=== PATIENT | female | born 1955 | race Caucasian/White ===

== ENCOUNTER → 2018-04-18 | Outpatient (CLI) | payer MEDICARE ==
--- NOTE | 2018-04-18 20:38 | PN ---
PROGRESS NOTE This is a 60-year-old female patient with obstructive sleep apnea coming in for followup. She is doing extremely well. She is using the [employer] nose mask. She has lost weight. She used to weight 344. Currently she is down to 328. She has been averaging around 7.9 hours of CPAP use per night. Her CPAP use for more than 4 hours is 27/30. AHI while on treatment is down to 1. She is on a CPAP pressure of 15 cm of water. Leak factor is 11 L/minute. She continues to benefit from the treatment. No major medical problems or comorbidities over the past one year. She is waking up refreshed and alert and she has no other complaints otherwise. REVIEW OF SYSTEMS: Twelve-point review of systems was done. Positive findings are all mentioned above in the history of present illness. PHYSICAL EXAMINATION: CURRENT VITALS: BP is 146/65, pulse 88, respirations 16, temperature 98.5, saturation 95% on room air. BMI 51.3. Weight is 328. [place] score is 4. GENERAL APPEARANCE: Calm comfortable. Head is atraumatic, normocephalic. NECK: Supple. There is no JVD. No goiter or neck masses. LUNGS: Diminished breath sounds bilaterally. HEART: Heart sounds are regular rate and rhythm. Normal S1, S2. No S3, S4. No murmurs. ABDOMEN: Soft, nontender. No organomegaly. EXTREMITIES: No edema. No cyanosis or clubbing. IMPRESSION: 1. Obstructive sleep apnea, currently on CPAP pressure of 15. Continues to be treated successfully without any issues. 2. Hypersomnia, recovered. 3. Obesity with interval weight loss. BMI 51.3. Weight is down to 328. 4. Diabetes. 5. Hypertension. 6. History of depression. PLAN: 1. Keep the pressure at 15. 2. Offer AirFit N20 nose mask. 3. Encourage further weight loss. 4. See me back in a year's time. MMODL / IJN: [id number] /
== END | disposition home or self-care (01) ==
LOC: SLEEP 15:47
PROVIDERS: ATTEND Internal Medicine Critical Care Medicine
DX: G47.33 Obstructive sleep apnea (adult) (pediatric) (principal); E66.9 Obesity, unspecified; E11.9 Type 2 diabetes mellitus without complications; I10 Essential (primary) hypertension; F32.9 Major depressive disorder, single episode, unspecified; Z68.43 Body mass index [BMI] 50.0-59.9, adult; Z99.89 Dependence on other enabling machines and devices

== ENCOUNTER → 2019-04-03 | Outpatient (CLI) | payer MEDICARE ==
--- NOTE | 2019-04-03 14:11 | PN ---
PROGRESS NOTE Brittaney is a 63-year-old female patient with known history of obstructive sleep apnea. The patient is coming in for an annual check. The patient has is still using the nasal mask which she was given originally which is an EasyLife nose mask. She has done extremely well. However it has got to the point with the manufacture is not producing the same mask and we are looking for alternatives. She is losing weight. She has lost around 8 pounds since her last evaluation around a year ago. She remains extremely compliant with her CPAP which is set at a pressure of 15 cm of water. Her CPAP use on averages is around 9 hours and her CPAP use for more than 7 hours is 29/30. Leak is 19 L/minute and AHI is down to 2. She has no specific complaints. She is seeking for alternative masks. No other new onset of medical problems and comorbidities, no angina, no palpitation, no CVA, no history of any congestive heart failure. Medication was reviewed. MEDICATION LIST: Includes Lasix 20 mg p.o. daily, hydrochlorothiazide 50 mg p.o. q. day, benazepril to 20 mg p.o. q. day, Cymbalta 30 q. day, flaxseed oil, magnesium, baby aspirin, Ginseng, Cymbalta 30 mg p.o. q. day, Lantus insulin 90 units in the morning, 26 in the evening, and sliding scale coverage. REVIEW OF SYSTEMS: A 14-point review of system was done. Positive findings are mentioned in history of present illness. Of significance, the positive weight loss. No major hypersomnia or sleepiness. At this point in time, the patient's [place] score is down to 5. PHYSICAL EXAMINATION: BP is 131/67, pulse 80, respirations 16, temperature 98 degrees, saturation 92% on room air. Height is 5, 6, weight is 220. GENERAL APPEARANCE: Calm, comfortable. HEAD: Atraumatic, normocephalic. NECK: Supple. No JVD. No goiter or neck mass. Mallampati class IV. LUNGS: Clear to auscultation. HEART: Sounds regular rate and rhythm. Normal S1, S2. No S3, S4. No murmurs. ABDOMEN: Soft, nontender. No organomegaly. EXTREMITIES: No edema. No cyanosis or clubbing. IMPRESSION: 1. Obstructive sleep apnea, currently on CPAP pressure of 15 cm of water. Treatment continues to be extremely successful. 2. Obesity with interval weight loss. Patient lost weight is in the order of 8 pounds and current BMI is 50.8. 3. Hypersomnia, improved. 4. Diabetes. 5. Hypertension. 6. Depression. PLAN: 1. The patient was fitted to an Air Fit N20 medium-sized full nose mask. 2. Encourage weight loss. 3. Continue same CPAP pressure. 4. See me back in a year's time in followup. MMODL / IJN: [id number] /
== END | disposition home or self-care (01) ==

== ENCOUNTER → 2020-04-01 | Outpatient (CLI) | payer MEDICARE ==
--- NOTE | 2020-04-01 16:06 | PN ---
PROGRESS NOTE This patient is seeing me for an annual check regarding obstructive sleep apnea. She has history of MIKEY and she [facility] The patient is utilizing her CPAP machine, which is set at a pressure of 15 cm of water. She also uses an [employer] nose mask. Since her last evaluation, the patient has been extremely successful in terms of her treatment and the patient has been well treated. I checked compliance data from her machine and over the past 30 days the patient has been averaging around 9.1 hours of CPAP use per night. His CPAP use for more than 4 hours is approaching 100%. Her leak is around 31 L/minutes. Her AHI is down to 1.8. 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 Since then, she has been on anticoagulation and she is on Eliquis for now and she has been on Eliquis for the past 7 months. It seems that her DVT and pulmonary embolism were unprovoked. She is morbidly obese and today she is weighing around 217 pounds, which is equivalent to her previous body weight. No major hypersomnia or sleepiness during the day. She is using an AirFit N20 nose mask. Her shortness of breath has improved. REVIEW OF SYSTEMS: A 14-point review of system was done, positive findings are mentioned in history of present illness. Positive for internal development of DVT and pulmonary embolism. Her BP is 188/81, pulse 84, respirations 16, temperature 98.4, saturation 96% on room air. Height is 5, 7, weight is 217. GENERAL APPEARANCE: Calm, comfortable. HEAD: Atraumatic, normocephalic. NECK: Supple. No JVD. No goiter or neck masses, Mallampati class IV. LUNGS: Clear to auscultation. HEART: Heart sounds are regular rate and rhythm, normal S1, S2. No S3, S4. No murmurs. ABDOMEN: Soft, nontender. No organomegaly. EXTREMITIES: Trace edema. No cyanosis or clubbing. No calf pain or tenderness. IMPRESSION: 1. MIKEY. The patient has been treated with CPAP pressure of 15 cm of water. Her treatment has been essentially successful. Compliance data was checked. 2. Morbid obesity with a BMI of 50. 3. No history of DVT and pulmonary embolism. The patient is on long-term anticoagulation with Eliquis. 4. Hypersomnia, improved. 5. Diabetes. 6. Hypertension. 7. Depression. PLAN: 1. Continue anticoagulation with Eliquis. 2. The patient is to see me in the office in regard to her DVT and pulmonary embolism, for further advice and I advised her to come in 5 months' time after completing a year course of anticoagulation for unprovoked pulmonary embolism. 3. Encourage weight loss. Continue APAP therapy. Keep the easy life nasal mask. 4. Will continue to follow. MMODL / IJN: [id number] /
== END | disposition home or self-care (01) ==
LOC: SLEEP 13:01
PROVIDERS: ATTEND Internal Medicine Critical Care Medicine
DX: G47.33 Obstructive sleep apnea (adult) (pediatric) (principal); G47.10 Hypersomnia, unspecified; E66.01 Morbid (severe) obesity due to excess calories; E11.9 Type 2 diabetes mellitus without complications; I10 Essential (primary) hypertension; F32.9 Major depressive disorder, single episode, unspecified; Z68.43 Body mass index [BMI] 50.0-59.9, adult; Z99.89 Dependence on other enabling machines and devices